=== PATIENT | female | born 1970 | race Hispanic/Latino ===

== ENCOUNTER 2017-06-14 16:40 | Observation (INO) | payer BC, MEDICAID ==
[2017-06-14] MEDS ORDERED: Sodium Chloride 0.9% 1,000 ML IV STA (17:13)
[2017-06-14 17:16] LABS: HEMATOCRIT 28.8 % (36.0-48.0); MEAN CELL VOLUME 63.7 fl (80.0-105.0); MEAN CORPUSCULAR HEMOGLOBIN 18.4 pg (25.0-35.0); MEAN CORPUSCULAR HGB CONC 28.8 g/dl (31.0-37.0); PLATELET COUNT 255 10^3/uL (120.0-450.0); RED CELL DISTRIBUTION WIDTH 18.7 % (11.5-14.5); WHITE BLOOD COUNT 8.3 10^3/ul (4.5-11.0)
[2017-06-14 17:26] LABS: ALB/GLOB RATIO 1.4 (1.1-1.8); ALKALINE PHOSPHATASE 75 U/L (38-126); ALT/SGPT 23 U/L (7-56); AST/SGOT 26 U/L (14-36); BILIRUBIN,TOTAL 0.2 mg/dL (0.2-1.3); BLOOD UREA NITROGEN 13 mg/dL (7-21); CALCIUM 8.7 mg/dL (8.4-10.5); CARBON DIOXIDE 24 mmol/L (21-33); CHLORIDE 109 mmol/L (98-107); GFR AFRICAN-AMERICAN > 60; GLUCOSE,RANDOM 91 mg/dL (70-110); LIPASE 78 U/L (23-300); MAGNESIUM 1.9 mg/dL (1.7-2.2); POTASSIUM 3.8 mmol/L (3.6-5.0); SODIUM 140 mmol/L (132-148); TOTAL PROTEIN 6.7 g/dL (5.8-8.3)
[2017-06-14 17:53] LABS: URINE BILIRUBIN NEGATIVE (NEGATIVE); URINE BLOOD NEGATIVE (NEGATIVE); URINE GLUCOSE (UA) NEGATIVE (NEGATIVE); URINE KETONE NEGATIVE (NEGATIVE); URINE LEUKOCYTE ESTERASE TRACE Leu/uL (NEGATIVE); URINE PROTEIN NEGATIVE mg/dL (<30 mg/dL); URINE UROBILINOGEN 0.2 E.U./dL (<1 E.U./dL)
[2017-06-14 17:54] LABS: URINE APPEARANCE SL CLOUDY (CLEAR); URINE COLOR YELLOW (YELLOW)
[2017-06-14 17:58] LABS: URINE RBC 0 - 2 /hpf (0-2)
--- NOTE | 2017-06-14 18:58 | ED PDOC ---
Arrival/HPI - General Chief Complaint: Abdominal Pain Time Seen by Provider: 06/14/17 16:52 Historian: Patient - History of Present Illness Narrative History of Present Illness (Text): 06/14/17 18:50 A 46 year old female whose past medical history includes gastric bypass and has had one of her ovaries removed (she thinks it is the left), presents to the emergency department with a complaint of left lower quadrant abdominal pain radiating to the left flank and hip and down the left upper portion of her leg. The patient states that the pain is episodic, but very intense with associated nausea and vomiting. She also has been having fatigue for several weeks. The patient denies fevers, chills, headache, dizziness, chest pain, shortness of breath, dyspnea on exertion, cough, diarrhea, back pain, neck pain, urinary/ bowel changes, or any other complaint. Time/Duration: Other (Today) Symptom Onset: Sudden Symptom Course: Unchanged Activities at Onset: Rest, Light Context: Home Past Medical History - Provider Review Nursing Documentation Reviewed: Yes - Infectious Disease Hx of Infectious Diseases: None - Tetanus Immunization Tetanus Immunization: Unknown - Past Medical History Past Medical History: Non-Contributing - Psychiatric Hx Depression: No Hx Emotional Abuse: No Hx Physical Abuse: No Hx Substance Use: No - Surgical History Hx Gastric Bypass Surgery: Yes (zuly n y) Hx Tubal Ligation: Yes - Anesthesia Hx Anesthesia: Yes Hx Anesthesia Reactions: No Hx Malignant Hyperthermia: No - Suicidal Assessment Feels Threatened In Home Enviroment: No Family/Social History - Physician Review Nursing Documentation Reviewed: Yes Family/Social History: No Known Family HX Smoking Status: Current Some Days Smoker Hx Alcohol Use: Yes Frequency of alcohol use: Socially Hx Substance Use: No Hx Substance Use Treatment: No Allergies/Home Meds Allergies/Adverse Reactions: Allergies codeine Adverse Reaction (Verified 06/14/17 16:42) ANAPHYLAXIS Home Medications: Home Meds Medication Instructions Recorded Confirmed No Known Home Med 06/14/17 06/14/17 Review of Systems - Physician Review All systems were reviewed & negative as marked: Yes - Review of Systems Constitutional: Fatigue. absent: Fevers, Night Sweats ENT: absent: Sore Throat Respiratory: absent: SOB, Cough Cardiovascular: absent: Chest Pain, [place] Gastrointestinal: Abdominal Pain (LLQ pain), Nausea, Vomiting. absent: Stool Changes, Diarrhea Genitourinary Female: absent: Urine Output Changes Musculoskeletal: absent: Back Pain, Neck Pain Neurological: absent: Headache, Dizziness Physical Exam Vital Signs Reviewed: Yes Vital Signs Temp Pulse Resp BP Pulse Ox 06/14/17 20:32 60 12 118/65 100 06/14/17 19:50 62 16 140/89 100 06/14/17 18:22 59 L 16 134/70 100 06/14/17 17:45 56 L 12 130/68 100 06/14/17 16:45 98.2 F 71 19 127/77 100 Temperature: Afebrile Blood Pressure: Normal Pulse: Regular Respiratory Rate: Normal Appearance: Positive for: Non-Toxic, Uncomfortable (due to pain) Pain Distress: Moderate Mental Status: Positive for: Alert and Oriented X 3 - Systems Exam Head: Present: Atraumatic, Normocephalic Pupils: Present: PERRL Conjunctiva: Present: Normal Mouth: Present: Moist Mucous Membranes Pharnyx: Present: Normal. No: ERYTHEMA, EXUDATE Neck: Present: Normal Range of Motion Respiratory/Chest: Present: Clear to Auscultation, Good Air Exchange. No: Respiratory Distress, Accessory Muscle Use Cardiovascular: Present: Regular Rate and Rhythm, Normal S1, S2. No: Murmurs Abdomen: Present: Tenderness (LLQ tender to palpation) Back: Present: CVA Tenderness Upper Extremity: Present: Normal Inspection. No: Cyanosis, Edema Lower Extremity: Present: Normal Inspection. No: Edema Neurological: Present: GCS=15, CN II-XII Intact, Speech Normal Skin: Present: Warm, Dry, Normal Color. No: Rashes Psychiatric: Present: Alert, Oriented x 3, Normal Insight, Normal Concentration Medical Decision Making ED Course and Treatment: 06/14/17 19:00 Impression: A 46 year old female presents with LLQ abdominal pain radiating to the left flank area, hip, and down the left upper portion of her leg. Differential: L renal colic vs. colitis vs muscular pain vs. intussusception Plan: -- Abdomen/Pelvis CT -- Urinalysis -- Labs -- Urine Culture -- Pepcid, Zofran, Toradol, and IV Fluids -- Reassess and disposition Prior Visits: Notes and results from previous visits were reviewed. Patient was last seen in the emergency department on 11/15/14. The patient presented to the emergency department with a complaint of RLQ. The patient was discharged home on Ultram. Progress Notes: CT Abdomen and Pelvis Without Intravenous Contrast IMPRESSION: - Possible mild mesenteric adenitis. - Otherwise, no evidence of significant acute process. - Tiny, nonobstructing left renal stone. No evidence of obstructive nephrourolithiasis. - Findings which can be seen with anemia. Recommend clinical correlation. - See above for remaining findings. Dictated and Authenticated by: Lindsey Browne MD 06/14/2017 8:35 PM Eastern Time ([place] & [place]) 06/14/17 21:26 Patient with noted history with labs showing significant anemia; patient uncomfortable appearing, not relieved with toradol, requiring iv narcotics for pain control - CT results are nondiagnostic though septal cardiac changes seen in anemia are noted - will need further observation for GI and surgery eval ( given gastric bypass history). Case discussed with hospitalist, Dr. Mayte Corado. - Lab Interpretations Lab Results: 06/14/17 17:00 06/14/17 17:00 Lab Results 06/14/17 17:25: Urine Color Yellow, Urine Appearance Sl cloudy, Urine pH 6.0, Ur Specific [place] >= 1.030, Urine Protein Negative, Urine Glucose (UA) Negative, Urine Ketones Negative, Urine Blood Negative, Urine Nitrate Negative, Urine Bilirubin Negative, Urine Urobilinogen 0.2, Ur Leukocyte Esterase Trace H , Urine RBC 0 - 2, Urine WBC 1 - 3, Ur Epithelial Cells 10 - 12 06/14/17 17:00: Sodium 140, Potassium 3.8, Chloride 109 H, Carbon Dioxide 24, Anion Gap 11, BUN 13, Creatinine 0.7, Est GFR ( Amer) > 60, Est GFR (Non- Af Amer) > 60, Random Glucose 91, Calcium 8.7, Magnesium 1.9, Total Bilirubin 0.2, AST 26, ALT 23, Alkaline Phosphatase 75, Total Protein 6.7, Albumin 3.8, Globulin 2.8, Albumin/Globulin Ratio 1.4, Lipase 78 06/14/17 17:00: WBC 8.3 D, RBC 4.52, Hgb 8.3 L, Hct 28.8 L, MCV 63.7 L, MCH 18.4 L, MCHC 28.8 L, RDW 18.7 H, Plt Count 255 I have reviewed the lab results: Yes - RAD Interpretation Radiology Orders: 06/14/17 17:12 ABD & PELVIS W/O PO OR IV CONT [CT] Stat - Medication Orders Current Medication Orders: Discontinued Medications Famotidine (Pepcid) 20 mg IVP STAT STA Stop: 06/14/17 17:14 Last Admin: 06/14/17 17:31 Dose: 20 mg IVP Administration Document 06/14/17 17:31 CNR (Rec: 06/14/17 17:31 CNR [place] [id number]) Charges for Administration # of IVP Administrations 1 Sodium Chloride (Sodium Chloride 0.9%) 1,000 mls @ 999 mls/hr IV .Q1H1M STA Stop: 06/14/17 18:13 Last Admin: 06/14/17 17:28 Dose: 999 mls/hr eMAR Start Stop Document 06/14/17 17:28 GMI (Rec: 06/14/17 17:29 GMI [id number]) Intravenous Solution Start Date 06/14/17 Start Time 17:29 Ketorolac Tromethamine (Toradol) 30 mg IVP STAT STA Stop: 06/14/17 17:14 Last Admin: 06/14/17 17:31 Dose: 30 mg MAR Pain Assessment Document 06/14/17 17:31 CNR (Rec: 06/14/17 17:31 CNR [place] [id number]) Pain Reassessment Is this a pain reassessment? Yes Sleep Is patient sleeping during reassessment? No Presence of Pain Presence of Pain Yes Pain Scale Used Pain Scale Used Numeric Location Pain Location Body Site Abdomen Description Description Constant Intensity of Pain at present 7 IVP Administration Document 06/14/17 17:31 CNR (Rec: 06/14/17 17:31 CNR [place] [id number]) Charges for Administration # of IVP Administrations 1 Morphine Sulfate (Morphine) 2 mg IVP STAT STA Stop: 06/14/17 19:32 Last Admin: 06/14/17 19:56 Dose: 2 mg MAR Pain Assessment Document 06/14/17 19:56 CNR (Rec: 06/14/17 19:56 CNR [place] [id number]) Pain Reassessment Is this a pain reassessment? Yes Sleep Is patient sleeping during reassessment? No Presence of Pain Presence of Pain Yes Pain Scale Used Pain Scale Used Numeric Location Pain Location Body Site Abdomen Description Description Constant Intensity of Pain at present 4 IVP Administration Document 06/14/17 19:56 CNR (Rec: 06/14/17 19:56 CNR [place] [id number]) Charges for Administration # of IVP Administrations 1 Ondansetron HCl (Zofran Inj) 4 mg IVP STAT STA Stop: 06/14/17 17:14 Last Admin: 06/14/17 17:31 Dose: 4 mg IVP Administration Document 06/14/17 17:31 CNR (Rec: 06/14/17 17:31 CNR [place] [id number]) Charges for Administration # of IVP Administrations 1 - Scribe Statement The provider has reviewed the documentation as recorded by the Niribsameer Cardoza Provider Scribe Attestation: All medical record entries made by the Scribe were at my direction and personally dictated by me. I have reviewed the chart and agree that the record accurately reflects my personal performance of the history, physical exam, medical decision making, and the department course for this patient. I have also personally directed, reviewed, and agree with the discharge instructions and disposition. Disposition/Present on Arrival - Present on Arrival Any Indicators Present on Arrival: No History of DVT/PE: No History of Uncontrolled Diabetes: No Urinary Catheter: No History of Decub. Ulcer: No History Surgical Site Infection Following: None - Disposition Have Diagnosis and Disposition been Completed?: Yes Diagnosis: Intractable abdominal pain, Anemia Disposition: HOSPITALIZED Disposition Time: 20:50 Patient Plan: Observation Condition: FAIR
[2017-06-14] MEDS ORDERED: Morphine 2 mg/ml ISec IVP STA (19:31)
--- NOTE | 2017-06-14 20:35 | CT ---
EXAM: CT Abdomen and Pelvis Without Intravenous Contrast EXAM DATE/TIME: 06/14/2017 5:12 PM CLINICAL HISTORY: 46 years old, female; Pain; Abdominal pain; Additional info: L side abd pain with l flank pain TECHNIQUE: Axial computed tomography images of the abdomen and pelvis without intravenous contrast. All CT scans at this facility use one or more dose reduction techniques, viz.: automated exposure control; ma/kV adjustment per patient size (including targeted exams where dose is matched to indication; i.e. head); or iterative reconstruction technique. Coronal and sagittal reformatted images were created and reviewed. COMPARISON: No relevant prior studies available. FINDINGS: LOWER THORAX: Dense septum sign noted in the heart, a finding which can be seen with anemia. Heart appears mildly enlarged for age. Recommend clinical correlation. ABDOMEN: LIVER: No acute abnormality of the liver identified. GALLBLADDER AND BILE DUCTS: No CT evidence of acute cholecystitis. No evidence of significant biliary ductal dilatation. PANCREAS: No CT evidence of acute pancreatitis. SPLEEN: No acute abnormality of the spleen identified. ADRENALS: No acute abnormality of the adrenal glands identified. KIDNEYS AND URETERS: Tiny, nonobstructing left renal stone. No evidence of hydroureteronephrosis. STOMACH AND BOWEL: Postsurgical changes involving the stomach and left abdomen, with an appearance most compatible with previous gastric bypass surgery. Otherwise, no significant abnormality of the bowel is identified. No acute abnormality of the gastric pouch or excluded portion of the stomach identified. No evidence of bowel obstruction. APPENDIX: Appendix is seen, and is within normal limits in appearance. PELVIS: BLADDER: No acute abnormality of the bladder identified. REPRODUCTIVE:No acute abnormality of the reproductive organs is seen. No acute abnormality of the uterus identified. No evidence of large adnexal masses. ABDOMEN and PELVIS: INTRAPERITONEAL SPACE: Tiny amount of free fluid in the pelvis. This is most likely physiologic in nature. No evidence of free intraperitoneal air. BONES/JOINTS: No acute fractures or other acute bony abnormality noted. SOFT TISSUES: No acute abnormality of the visualized soft tissues is seen. VASCULATURE: No evidence of abdominal aortic aneurysm. No evidence of periaortic hemorrhage. LYMPH NODES: Multiple small mesenteric lymph nodes are seen, none appearing pathologically enlarged. Findings are nonspecific, but could represent mild mesenteric adenitis. IMPRESSION: - Possible mild mesenteric adenitis. - Otherwise, no evidence of significant acute process. - Tiny, nonobstructing left renal stone. No evidence of obstructive nephrourolithiasis. - Findings which can be seen with anemia. Recommend clinical correlation. - See above for remaining findings.
[2017-06-14 22:54] VITALS: BMI 33.0
[2017-06-14] MEDS ORDERED: Pneumococcal 23-Valent Vaccine IM ONE (22:54)
[2017-06-14 23:43] LABS: IRON 18 ug/dL (45-180)
[2017-06-14 23:48] LABS: RETIC% 0.82 % (0.5-1.5)
[2017-06-15 00:22] LABS: INR 1.01 (0.93-1.08); PARTIAL THROMBOPLASTIN TIME 24.3 Seconds (23.7-30.8)
--- NOTE | 2017-06-15 03:58 | CP.PCM.HP ---
<JoseJamin - Last Filed: 06/15/17 05:10> History of Present Illness - History of Present Illness History of Present Illness: H/P For IM - TKS DO, PGY-1 CC: Abdominal pain HPI: 46 F s/p gastric bypass and oophorectomy presents with a week's duration of crampy, episodic LLQ abdominal pain of 8/10 radiating to her back in the lumbar region, which does not get better or worse with intervention, and is associated with n/v. Patient states that the pain became very intense yesterday, at which point it shot up to a 10/10, and that was the reason she came into the ER. She states that she used to have pain like this right after her gastric bypass when she would eat too much, but never this intense, and she says she now "know(s) how much to eat to prevent the pain." Of note, patient has also been feeling sob and fatigued for several months. Pt denies wheezing, cough, pleuritis, and production. Pt denies f/ch/cp/sob/d/dysuria/frequency/urgency/hematuria/hematochezia/ hematemesis/vaginal discharge PSHx: Gastric bypass, Oophorectomy PMHx: Obesity, Ovarian cysts All: Codeine SocHx: EtOH and Tobacco socially; denies illicits FamHx: Heavy periods Meds: Iron Present on Admission - Present on Admission Any Indicators Present on Admission: No Review of Systems - Hematologic/Lymphatic Additional comments: ROS: Constitutional: pt denies fever, chills, generalized weakness ENT: pt denies dysphagia, otalgia, hearing deficit, rhinorrhea Eyes: pt denies sudden loss of vision, diplopia, blurred vision MSK: pt denies muscle stiffness, joint pain, extremity cramping Cardio: pt denies sob, heart murmur, cp Pulm: pt denies cough, hemoptysis, wheeze GI: +see hpi : pt denies burning on urination, urinary frequency, hematuria, urinary urgency Neuro: pt denies paresis, paresthesia, dizziness, bland, numbness, tingling Derm: pt denies skin changes, lesions, nail changes Endo: pt denies intolerance to heat/cold, diaphoresis, night sweats, polydipsia Psych: pt denies anxiety, depression, mood changes Past Patient History - Infectious Disease Hx of Infectious Diseases: None - Tetanus Immunizations Tetanus Immunization: Unknown - Past Social History Smoking Status: Current Some Days Smoker - CARDIAC Hx Cardiac Disorders: No - PULMONARY Hx Respiratory Disorders: Yes (SMOKES 5 CIGARETTES A DAY) - NEUROLOGICAL Hx Neurological Disorder: No - HEENT Hx HEENT Problems: No - RENAL Hx Chronic Kidney Disease: No - ENDOCRINE/METABOLIC Hx Endocrine Disorders: No - HEMATOLOGICAL/ONCOLOGICAL Hx Blood Disorders: Yes Hx Anemia: Yes (8.3 HGB 06-14-17) - INTEGUMENTARY Hx Dermatological Problems: No - MUSCULOSKELETAL/RHEUMATOLOGICAL Hx Musculoskeletal Disorders: No Hx Falls: No - GASTROINTESTINAL Hx Gastrointestinal Disorders: Yes (GASTRIC BYPASS [place]) - GENITOURINARY/GYNECOLOGICAL Hx Genitourinary Disorders: Yes (FIBROIDS,L OVARY REMOVED,TUBAL LIGATION) - PSYCHIATRIC Hx Psychophysiologic Disorder: No Hx Depression: No Hx Emotional Abuse: No Hx Physical Abuse: No Hx Substance Use: No - SURGICAL HISTORY Hx Surgeries: Yes (L OVARY REMOVED,TUBAL LIGATION) Hx Gastric Bypass Surgery: Yes (zuly n y) - ANESTHESIA Hx Anesthesia: Yes Hx Anesthesia Reactions: No Hx Malignant Hyperthermia: No Meds Allergies/Adverse Reactions: Allergies Allergy/AdvReac Type Severity Reaction Status Date / Time codeine AdvReac ANAPHYLAXIS Verified 06/14/17 22:34 Physical Exam - Additional Findings Additional findings: Phys Exam: VS as below Constitutional: a&o x 4, nad Head and Neck: neck supple, no jvd, trachea midline, carotid midline, no cervical/head mass Eyes: zaheer, nonicteric sclera, eom intact ENT: auditory acuity grossly intact, throat not congested, no nasal deformity Cardio: rrr, no m/r/g, no carotid bruit, nml s1, s2 Pulm: no accessory muscle use, equal nml breath sounds bilaterally, ctab Abd: +exquisitely tender in LLQ; Negative Frankie's sign; s/nd, nbs x 4 q, no palpable masses Derm: no rashes, no ulcers, no lesions Extr: no edema, no cyanosis, no calf tenderness, no lesions, no varicosities Neuro: cn II-XII grossly intact, ue and le 5/5 muscle strength bilaterally, no los ue, le bilaterally and core Results - Vital Signs Recent Vital Signs: Last Vital Signs Temp 97.8 F 06/14/17 22:34 Pulse 63 06/14/17 22:34 Resp 18 06/14/17 22:34 BP 130/47 L 06/14/17 22:34 Pulse Ox 99 06/14/17 22:30 - Labs Result Diagrams: 06/14/17 17:00 06/14/17 17:00 Labs: Laboratory Results - last 24 hr 06/14/17 06/14/17 06/14/17 17:00 17:00 17:00 WBC 8.3 D RBC 4.52 Hgb 8.3 L Hct 28.8 L MCV 63.7 L MCH 18.4 L MCHC 28.8 L RDW 18.7 H Plt Count 255 Retic Count PT INR APTT Sodium 140 Potassium 3.8 Chloride 109 H Carbon Dioxide 24 Anion Gap 11 BUN 13 Creatinine 0.7 Est GFR ( Amer) > 60 Est GFR (Non-Af Amer) > 60 Random Glucose 91 Calcium 8.7 Magnesium 1.9 Iron 18 L TIBC 551 H % Saturation 3 L Total Bilirubin 0.2 AST 26 ALT 23 Alkaline Phosphatase 75 Total Protein 6.7 Albumin 3.8 Globulin 2.8 Albumin/Globulin Ratio 1.4 Lipase 78 Urine Color Urine Appearance Urine pH Ur Specific Sod Urine Protein Urine Glucose (UA) Urine Ketones Urine Blood Urine Nitrate Urine Bilirubin Urine Urobilinogen Ur Leukocyte Esterase Urine RBC Urine WBC Ur Epithelial Cells 06/14/17 06/14/17 06/14/17 17:00 17:25 23:55 WBC RBC Hgb Hct MCV MCH MCHC RDW Plt Count Retic Count 0.82 PT 10.9 INR 1.01 APTT 24.3 Sodium Potassium Chloride Carbon Dioxide Anion Gap BUN Creatinine Est GFR ( Amer) Est GFR (Non-Af Amer) Random Glucose Calcium Magnesium Iron TIBC % Saturation Total Bilirubin AST ALT Alkaline Phosphatase Total Protein Albumin Globulin Albumin/Globulin Ratio Lipase Urine Color Yellow Urine Appearance Sl cloudy Urine pH 6.0 Ur Specific Sod >= 1.030 Urine Protein Negative Urine Glucose (UA) Negative Urine Ketones Negative Urine Blood Negative Urine Nitrate Negative Urine Bilirubin Negative Urine Urobilinogen 0.2 Ur Leukocyte Esterase Trace H Urine RBC 0 - 2 Urine WBC 1 - 3 Ur Epithelial Cells 10 - 12 Assessment & Plan - Assessment and Plan (Free Text) Assessment: A/P 46 F s/p oophorectomy and gastric bypass with 1 week of severe abdominal pain radiating to her back with associated N/V. Patient also has symptomatic anemia Intractible Abdominal Pain, likely 2/2 eating adjustment VS renal stone VS mesenteric adenitis - CT Abdomen shows mesenteric adenitis as well as a small renal stone - pain could be due to a combination of these - Patient states that in the past, she had trouble with overeating after her gastric bypass - perhaps with her new weight, she is having difficulty adjusting to the proper food quantity - NPO, Protonix - GI C/s: Dr. Mills Symptomatic Anemia - Iron studies, Retic count - Consider transfusion < 7.5 - Consider Heme c/s, but more of an outpatient workup - IV Iron PPHXS - SCD's/Protonix, as above TKS DO PGY-1. D/w Dr. Mayte Corado <Gerber Corado - Last Filed: 06/15/17 06:28> Results - Vital Signs Recent Vital Signs: Last Vital Signs Temp 97.8 F 06/14/17 22:34 Pulse 63 06/14/17 22:34 Resp 18 06/14/17 22:34 BP 130/47 L 06/14/17 22:34 Pulse Ox 99 06/14/17 22:30 - Labs Result Diagrams: 06/14/17 17:00 06/14/17 17:00 Labs: Laboratory Results - last 24 hr 06/14/17 23:55 PT 10.9 INR 1.01 APTT 24.3 Addendum Addendum: 06/15/17 06:23 46 hrs old female with hx of gastric bypass and heavy regular cycle menstration came to the er for c/o abdominal pain x few days left side of abdomen associated with nausea and vomiting no diarrhea or constipation. no fever chills , and weakness.found to have mesenteric adenitis on ct of abdomen and fe deficiency anemia.
--- NOTE | 2017-06-15 05:28 | CP.PCM.CON ---
History of Present Illness - History of Present Illness History of Present Illness: SURGERY CONSULT NOTE FOR DR. RICHARDSON 46F presents to [facility] with left sided abdominal pain. Patient states pain started on Friday, she describes it as achy and states it does not radiate. Patient states pain is associated with vomiting, especially after eating food. Vomitus is non-bloody, non bilious. She denies fevers, chills, and change in bowel movements. Her diet has been advanced since she has been here and she states she is able to tolerate the full liquid diet she is currently on. Patient states she has never had this type of pain before. Had a gastric bypass in april 2013 and has been following up with the surgeon. She lost 140lb since the operation. PMH: denies PSH: Gastric bypass, left oophorectomy (or cyst removal, patient unsure), with b /l tubal ligation Social: admits to tobacco and alcohol abuse Allergies: Codeine (angioedema) Past Patient History - Infectious Disease Hx of Infectious Diseases: None - Tetanus Immunizations Tetanus Immunization: Unknown - Past Social History Smoking Status: Current Some Days Smoker - CARDIAC Hx Cardiac Disorders: No - PULMONARY Hx Respiratory Disorders: Yes (SMOKES 5 CIGARETTES A DAY) - NEUROLOGICAL Hx Neurological Disorder: No - HEENT Hx HEENT Problems: No - RENAL Hx Chronic Kidney Disease: No - ENDOCRINE/METABOLIC Hx Endocrine Disorders: No - HEMATOLOGICAL/ONCOLOGICAL Hx Blood Disorders: Yes Hx Anemia: Yes (8.3 HGB 06-14-17) - INTEGUMENTARY Hx Dermatological Problems: No - MUSCULOSKELETAL/RHEUMATOLOGICAL Hx Musculoskeletal Disorders: No Hx Falls: No - GASTROINTESTINAL Hx Gastrointestinal Disorders: Yes (GASTRIC BYPASS [place]) - GENITOURINARY/GYNECOLOGICAL Hx Genitourinary Disorders: Yes (FIBROIDS,L OVARY REMOVED,TUBAL LIGATION) - PSYCHIATRIC Hx Psychophysiologic Disorder: No Hx Depression: No Hx Emotional Abuse: No Hx Physical Abuse: No Hx Substance Use: No - SURGICAL HISTORY Hx Surgeries: Yes (L OVARY REMOVED,TUBAL LIGATION) Hx Gastric Bypass Surgery: Yes (zuly n y) - ANESTHESIA Hx Anesthesia: Yes Hx Anesthesia Reactions: No Hx Malignant Hyperthermia: No Meds Allergies/Adverse Reactions: Allergies Allergy/AdvReac Type Severity Reaction Status Date / Time codeine AdvReac ANAPHYLAXIS Verified 06/14/17 22:34 - Medications Medications: Current Medications Iron Sucrose 100 mg/ Sodium (Chloride) 105 mls @ 210 mls/hr IVPB ONCE ONE Stop: 06/15/17 05:38 Pantoprazole Sodium (Protonix Inj) 40 mg IVP 0600 EMMY Physical Exam - Constitutional Appears: Non-toxic, No Acute Distress - Head Exam Head Exam: ATRAUMATIC - ENT Exam ENT Exam: Mucous Membranes Moist - Respiratory Exam Respiratory Exam: Clear to Auscultation Bilateral, NORMAL BREATHING PATTERN - Cardiovascular Exam Cardiovascular Exam: REGULAR RHYTHM, +S1, +S2 - GI/Abdominal Exam GI & Abdominal Exam: Soft, Tenderness (mostly LUQ). absent: Distended, Firm, Guarding, Rebound, Rigid - Extremities Exam Extremities exam: Negative for: pedal edema, tenderness - Back Exam Additional comments: negative bhavin's test - Neurological Exam Neurological exam: Alert, Oriented x3 - Psychiatric Exam Psychiatric exam: Normal Affect, Normal Mood - Skin Skin Exam: Dry, Intact, Normal Color, Warm Results - Vital Signs Recent Vital Signs: Last Vital Signs Temp 97.8 F 06/14/17 22:34 Pulse 63 06/14/17 22:34 Resp 18 06/14/17 22:34 BP 130/47 L 06/14/17 22:34 Pulse Ox 99 06/14/17 22:30 - Labs Result Diagrams: 06/14/17 17:00 06/14/17 17:00 Labs: Laboratory Results - last 24 hr 06/14/17 23:55 PT 10.9 INR 1.01 APTT 24.3 Assessment & Plan - Assessment and Plan (Free Text) Assessment: 46F with abdominal pain resolving CT: mesenteric adenitis, non-obstructing kidney stone Plan: - Advance diet as tolerated - Pain control - serial abdominal exams - Monitor CBC/ kidney function -DVT/GI ppx Further recs discuss with Dr. Amauri Dobbs, PGY2
[2017-06-15] MEDS ORDERED: Pantoprazole 40mg/100ml IVPB 40 MG/100 ML BAG IVPB SCH (06:00)
[2017-06-15 07:33] LABS: ALB/GLOB RATIO 1.3 (1.1-1.8); ALKALINE PHOSPHATASE 57 U/L (38-126); ALT/SGPT 26 U/L (7-56); AST/SGOT 21 U/L (14-36); BILIRUBIN,TOTAL 0.3 mg/dL (0.2-1.3); BLOOD UREA NITROGEN 14 mg/dL (7-21); CALCIUM 8.5 mg/dL (8.4-10.5); CARBON DIOXIDE 23 mmol/L (21-33); CHLORIDE 110 mmol/L (98-107); GFR AFRICAN-AMERICAN > 60; GLUCOSE,RANDOM 95 mg/dL (70-110); MAGNESIUM 1.9 mg/dL (1.7-2.2); PHOSPHOROUS 3.8 mg/dL (2.5-4.5); POTASSIUM 3.8 mmol/L (3.6-5.0); SODIUM 140 mmol/L (132-148); TOTAL PROTEIN 5.9 g/dL (5.8-8.3)
[2017-06-15 08:05] LABS: RETIC% 0.55 % (0.5-1.5)
[2017-06-15 08:16] LABS: BASO # 0.05 K/mm3 (0.0-2.0); BASO % 0.8 % (0.0-3.0); EOS # 0.3 (0.0-0.7); EOS % 4.8 % (1.5-5.0); GRAN % 59.5 % (50.0-68.0); HEMATOCRIT 25.5 % (36.0-48.0); LYMPH # 1.6 (1.2-3.4); LYMPH % 25.7 % (22.0-35.0); MEAN CELL VOLUME 63.9 fl (80.0-105.0); MEAN CORPUSCULAR HEMOGLOBIN 18.5 pg (25.0-35.0); MONO # 0.6 (0.1-0.6); MONO % 9.2 % (1.0-6.0); PLATELET COUNT 204 10^3/uL (120.0-450.0); RED CELL DISTRIBUTION WIDTH 18.7 % (11.5-14.5); WHITE BLOOD COUNT 6.2 10^3/ul (4.5-11.0)
[2017-06-15] MEDS ORDERED: Oxycodone/Acetaminophen 5/325 mg Tab PO PRN ×2 (10:18→10:29)
--- NOTE | 2017-06-15 13:52 | CP.PCM.CON ---
<Sam Kimble - Last Filed: 06/15/17 13:42> History of Present Illness - History of Present Illness History of Present Illness: PGY4 Initial GI Consult Ama Mcpherson is a 46 F s/p gastric bypass and oophorectomy presents with abdominal pain. She states that her pain is intermittent and located in the LLQ. She graded the pain 10/10 and states that it radiated to her back. She denies any alleviating or aggravating factors. Patient states that her pain peaked yesterday. She states that she used to have pain like this right after her gastric bypass when she would eat too much, but never this intense. Pt states that she has that she has daily BM and they were regular. She denies any nausea, vomiting or diarrhea. She denies any BRBPR, melena, coffee-ground emesis , or hematemesis. She states that she has not follow-up with her PCP in 1 year. Since admission, she has tolerated her diet and wants to advance it. Her pain is almost resolved. PSHx: Gastric bypass, Oophorectomy PMHx: Obesity, Ovarian cysts All: Codeine SocHx: EtOH and Tobacco socially; denies illicits FamHx: Heavy periods Endoscopy Hx: none ROS: 12-point ROS conducted, neg other than above Past Patient History - Infectious Disease Hx of Infectious Diseases: None - Tetanus Immunizations Tetanus Immunization: Unknown - Past Social History Smoking Status: Current Some Days Smoker - CARDIAC Hx Cardiac Disorders: No - PULMONARY Hx Respiratory Disorders: Yes (SMOKES 5 CIGARETTES A DAY) - NEUROLOGICAL Hx Neurological Disorder: No - HEENT Hx HEENT Problems: No - RENAL Hx Chronic Kidney Disease: No - ENDOCRINE/METABOLIC Hx Endocrine Disorders: No - HEMATOLOGICAL/ONCOLOGICAL Hx Blood Disorders: Yes Hx Anemia: Yes (8.3 HGB 9-30-17) - INTEGUMENTARY Hx Dermatological Problems: No - MUSCULOSKELETAL/RHEUMATOLOGICAL Hx Musculoskeletal Disorders: No Hx Falls: No - GASTROINTESTINAL Hx Gastrointestinal Disorders: Yes (GASTRIC BYPASS [place]) - GENITOURINARY/GYNECOLOGICAL Hx Genitourinary Disorders: Yes (FIBROIDS,L OVARY REMOVED,TUBAL LIGATION) - PSYCHIATRIC Hx Psychophysiologic Disorder: No Hx Depression: No Hx Emotional Abuse: No Hx Physical Abuse: No Hx Substance Use: No - SURGICAL HISTORY Hx Surgeries: Yes (L OVARY REMOVED,TUBAL LIGATION) Hx Gastric Bypass Surgery: Yes (zuly n y) - ANESTHESIA Hx Anesthesia: Yes Hx Anesthesia Reactions: No Hx Malignant Hyperthermia: No Meds Allergies/Adverse Reactions: Allergies Allergy/AdvReac Type Severity Reaction Status Date / Time codeine AdvReac ANAPHYLAXIS Verified 06/14/17 22:34 - Medications Medications: Current Medications Ketorolac Tromethamine (Toradol) 30 mg IVP Q4 PRN PRN Reason: Pain, severe (8-10) Oxycodone/Acetaminophen (Percocet 5/325 Mg Tab) 2 tab PO Q4H PRN PRN Reason: Pain, moderate (4-7) Stop: 06/18/17 10:30 Pantoprazole Sodium (Protonix Inj) 40 mg IVP 0600 [facility] Last Admin: 06/15/17 05:22 Dose: 40 mg Physical Exam - Constitutional Appears: Well, No Acute Distress - Head Exam Head Exam: ATRAUMATIC, NORMOCEPHALIC - Eye Exam Eye Exam: Normal appearance - ENT Exam ENT Exam: Mucous Membranes Moist - Neck Exam Neck exam: Positive for: Normal Inspection - Respiratory Exam Respiratory Exam: Clear to Auscultation Bilateral, NORMAL BREATHING PATTERN. absent: Rales, Rhonchi, Wheezes, Respiratory Distress - Cardiovascular Exam Cardiovascular Exam: REGULAR RHYTHM, +S1, +S2 - GI/Abdominal Exam GI & Abdominal Exam: Normal Bowel Sounds, Soft. absent: Guarding, Hernia, Organomegaly, Rigid - Extremities Exam Extremities exam: Negative for: joint swelling, pedal edema - Neurological Exam Neurological exam: Alert, Oriented x3 - Psychiatric Exam Psychiatric exam: Normal Affect, Normal Mood - Skin Skin Exam: Dry, Intact, Normal Color, Warm Results - Vital Signs Recent Vital Signs: Last Vital Signs Temp 98.3 F 06/15/17 13:20 Pulse 62 06/15/17 13:20 Resp 18 06/15/17 13:20 BP 127/83 06/15/17 13:20 Pulse Ox 99 06/15/17 07:30 - Labs Result Diagrams: 06/15/17 06:00 06/15/17 06:00 Labs: Laboratory Results - last 24 hr 06/14/17 06/15/17 06/15/17 23:55 06:00 06:00 WBC 6.2 D RBC 3.99 Hgb 7.4 L Hct 25.5 L MCV 63.9 L MCH 18.5 L MCHC 29.0 L RDW 18.7 H Plt Count 204 Gran % 59.5 Lymph % (Auto) 25.7 [place] % (Auto) 9.2 H Eos % (Auto) 4.8 Baso % (Auto) 0.8 Gran # 3.70 Lymph # 1.6 [place] # 0.6 Eos # 0.3 Baso # 0.05 Retic Count PT 10.9 INR 1.01 APTT 24.3 Sodium 140 Potassium 3.8 Chloride 110 H Carbon Dioxide 23 Anion Gap 11 BUN 14 Creatinine 0.7 Est GFR ( Amer) > 60 Est GFR (Non-Af Amer) > 60 Random Glucose 95 Calcium 8.5 Phosphorus 3.8 Magnesium 1.9 Total Bilirubin 0.3 AST 21 ALT 26 Alkaline Phosphatase 57 Total Protein 5.9 Albumin 3.3 Globulin 2.6 Albumin/Globulin Ratio 1.3 Blood Type Blood Type Confirm Antibody Screen Crossmatch BBK History Checked 06/15/17 06/15/17 06/15/17 06:30 09:55 10:50 WBC RBC Hgb Hct MCV MCH MCHC RDW Plt Count Gran % Lymph % (Auto) [place] % (Auto) Eos % (Auto) Baso % (Auto) Gran # Lymph # [place] # Eos # Baso # Retic Count 0.55 PT INR APTT Sodium Potassium Chloride Carbon Dioxide Anion Gap BUN Creatinine Est GFR ( Amer) Est GFR (Non-Af Amer) Random Glucose Calcium Phosphorus Magnesium Total Bilirubin AST ALT Alkaline Phosphatase Total Protein Albumin Globulin Albumin/Globulin Ratio Blood Type O POSITIVE Blood Type Confirm O POSITIVE Antibody Screen Negative Crossmatch See Detail BBK History Checked No verified bt Assessment & Plan - Assessment and Plan (Free Text) Assessment: Ama Mcpherson is a 46F w/ hx of gastric bypass and anemia who presents to the ED with abd pain. Etiology of pain is acute on chronic likely 2/2 non-adherence to recommended bypass diet. Pt has a hx of anemia and heavy menses. 1. Abd pain, improved 2. Anemia, likley 2/2 heavy menes 3. 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 Temple <Cornelio Temple MD - Last Filed: 06/15/17 17:21> Meds - Medications Medications: Current Medications Ketorolac Tromethamine (Toradol) 30 mg IVP Q4 PRN PRN Reason: Pain, severe (8-10) Oxycodone/Acetaminophen (Percocet 5/325 Mg Tab) 2 tab PO Q4H PRN PRN Reason: Pain, moderate (4-7) Stop: 06/18/17 10:30 Pantoprazole Sodium (Protonix Inj) 40 mg IVP 0600 [facility] Last Admin: 06/15/17 05:22 Dose: 40 mg Results - Vital Signs Recent Vital Signs: Last Vital Signs Temp 98.9 F 06/15/17 16:50 Pulse 68 06/15/17 16:50 Resp 18 06/15/17 16:50 BP 153/85 H 06/15/17 16:50 Pulse Ox 99 06/15/17 16:00 - Labs Result Diagrams: 06/15/17 06:00 06/15/17 06:00 Labs: Laboratory Results - last 24 hr 06/14/17 06/15/17 06/15/17 23:55 06:00 06:00 WBC 6.2 D RBC 3.99 Hgb 7.4 L Hct 25.5 L MCV 63.9 L MCH 18.5 L MCHC 29.0 L RDW 18.7 H Plt Count 204 Gran % 59.5 Lymph % (Auto) 25.7 [place] % (Auto) 9.2 H Eos % (Auto) 4.8 Baso % (Auto) 0.8 Gran # 3.70 Lymph # 1.6 [place] # 0.6 Eos # 0.3 Baso # 0.05 Retic Count PT 10.9 INR 1.01 APTT 24.3 Sodium 140 Potassium 3.8 Chloride 110 H Carbon Dioxide 23 Anion Gap 11 BUN 14 Creatinine 0.7 Est GFR ( Amer) > 60 Est GFR (Non-Af Amer) > 60 Random Glucose 95 Calcium 8.5 Phosphorus 3.8 Magnesium 1.9 Ferritin Total Bilirubin 0.3 AST 21 ALT 26 Alkaline Phosphatase 57 Total Protein 5.9 Albumin 3.3 Globulin 2.6 Albumin/Globulin Ratio 1.3 Blood Type Blood Type Confirm Antibody Screen Crossmatch BBK History Checked 1006/15/17 06/15/17 06:30 06:30 09:55 WBC RBC Hgb Hct MCV MCH MCHC RDW Plt Count Gran % Lymph % (Auto) [place] % (Auto) Eos % (Auto) Baso % (Auto) Gran # Lymph # [place] # Eos # Baso # Retic Count 0.55 PT INR APTT Sodium Potassium Chloride Carbon Dioxide Anion Gap BUN Creatinine Est GFR ( Amer) Est GFR (Non-Af Amer) Random Glucose Calcium Phosphorus Magnesium Ferritin 4.0 Total Bilirubin AST ALT Alkaline Phosphatase Total Protein Albumin Globulin Albumin/Globulin Ratio Blood Type O POSITIVE Blood Type Confirm Antibody Screen Negative Crossmatch See Detail BBK History Checked No verified bt 06/15/17 10:50 WBC RBC Hgb Hct MCV MCH MCHC RDW Plt Count Gran % Lymph % (Auto) [place] % (Auto) Eos % (Auto) Baso % (Auto) Gran # Lymph # [place] # Eos # Baso # Retic Count PT INR APTT Sodium Potassium Chloride Carbon Dioxide Anion Gap BUN Creatinine Est GFR ( Amer) Est GFR (Non-Af Amer) Random Glucose Calcium Phosphorus Magnesium Ferritin Total Bilirubin AST ALT Alkaline Phosphatase Total Protein Albumin Globulin Albumin/Globulin Ratio Blood Type Blood Type Confirm O POSITIVE Antibody Screen Crossmatch BBK History Checked Attending/Attestation - Attestation I have personally seen and examined this patient.: Yes I have fully participated in the care of the patient.: Yes I have reviewed all pertinent clinical information: Yes Notes (Text): 06/15/17 17:18 Patient seen and examined at bedside with GI fellow. This is a 46 yr old F w/ hx of gastric bypass and chronic anemia who presents to the ED with LLQ non specific pain which had resolved. Denies change on bowel habits. Physical exam unremarkable. Ct scan reviewed- mild adenitis. No indication for antibiotics. Anemia likely due to chronic menorrhagia and malabsorption due to gastric bypass. Will benefit from outpatient EGD/ colonoscopy. Diet as tolerated. Can follow with me as outpatient
[2017-06-16 07:11] LABS: BASO # 0.02 K/mm3 (0.0-2.0); BASO % 0.3 % (0.0-3.0); EOS # 0.2 (0.0-0.7); EOS % 3.4 % (1.5-5.0); GRAN # 4.62 (1.4-6.5); GRAN % 67.3 % (50.0-68.0); HEMATOCRIT 30.9 % (36.0-48.0); LYMPH # 1.4 (1.2-3.4); MEAN CELL VOLUME 66.3 fl (80.0-105.0); MEAN CORPUSCULAR HEMOGLOBIN 19.7 pg (25.0-35.0); MEAN CORPUSCULAR HGB CONC 29.8 g/dl (31.0-37.0); MONO # 0.6 (0.1-0.6); PLATELET COUNT 207 10^3/uL (120.0-450.0); WHITE BLOOD COUNT 6.9 10^3/ul (4.5-11.0)
[2017-06-16 07:26] VITALS: BP 137/74; PULSE 63; RESP 20; TEMP 97.6; O2SAT 100
[2017-06-16 07:36] LABS: ALB/GLOB RATIO 1.3 (1.1-1.8); ALKALINE PHOSPHATASE 61 U/L (38-126); ALT/SGPT 19 U/L (7-56); AST/SGOT 20 U/L (14-36); BILIRUBIN,TOTAL 0.7 mg/dL (0.2-1.3); BLOOD UREA NITROGEN 10 mg/dL (7-21); CALCIUM 8.9 mg/dL (8.4-10.5); CARBON DIOXIDE 24 mmol/L (21-33); CHLORIDE 109 mmol/L (98-107); GFR AFRICAN-AMERICAN > 60; GLUCOSE,RANDOM 97 mg/dL (70-110); PHOSPHOROUS 3.2 mg/dL (2.5-4.5); SODIUM 140 mmol/L (132-148); TOTAL PROTEIN 6.5 g/dL (5.8-8.3)
--- NOTE | 2017-06-16 11:59 | CP.PCM.DIS ---
<Kierra Mao - Last Filed: 06/16/17 15:20> Provider - Provider Date of Admission: 06/14/17 20:53 Attending physician: Gretchen Carias MD Primary care physician: Juno Snyder MD Consults: GI: Windy Forrest: Amauri Time Spent in preparation of Discharge (in minutes): 31 Hospital Course - Lab Results Lab Results: Most Recent Lab Values WBC 6.9 10^3/ul (4.5-11.0) 06/16/17 07:01 RBC 4.66 10^6/uL (3.5-6.1) 06/16/17 07:01 Hgb 9.2 g/dL (12.0-16.0) L 06/16/17 07:01 Hct 30.9 % (36.0-48.0) L 06/16/17 07:01 MCV 66.3 fl (80.0-105.0) L 06/16/17 07:01 MCH 19.7 pg (25.0-35.0) L 06/16/17 07:01 MCHC 29.8 g/dl (31.0-37.0) L 06/16/17 07:01 RDW 20.0 % (11.5-14.5) H 06/16/17 07:01 Plt Count 207 10^3/uL (120.0-450.0) 06/16/17 07:01 Gran % 67.3 % (50.0-68.0) 06/16/17 07:01 Lymph % (Auto) 21.0 % (22.0-35.0) L 06/16/17 07:01 [place] % (Auto) 8.0 % (1.0-6.0) H 06/16/17 07:01 Eos % (Auto) 3.4 % (1.5-5.0) 06/16/17 07:01 Baso % (Auto) 0.3 % (0.0-3.0) 06/16/17 07:01 Gran # 4.62 (1.4-6.5) 06/16/17 07:01 Lymph # 1.4 (1.2-3.4) 06/16/17 07:01 [place] # 0.6 (0.1-0.6) 06/16/17 07:01 Eos # 0.2 (0.0-0.7) 06/16/17 07:01 Baso # 0.02 K/mm3 (0.0-2.0) 06/16/17 07:01 Retic Count 0.55 % (0.5-1.5) 06/15/17 06:30 PT 10.9 Seconds (9.9-11.8) 06/14/17 23:55 INR 1.01 (0.93-1.08) 06/14/17 23:55 APTT 24.3 Seconds (23.7-30.8) 06/14/17 23:55 Sodium 140 mmol/L (132-148) 06/16/17 07:01 Potassium 4.0 mmol/L (3.6-5.0) 06/16/17 07:01 Chloride 109 mmol/L (98-107) H 06/16/17 07:01 Carbon Dioxide 24 mmol/L (21-33) 06/16/17 07:01 Anion Gap 11 (10-20) 06/16/17 07:01 BUN 10 mg/dL (7-21) 06/16/17 07:01 Creatinine 0.7 mg/dL (0.5-1.4) 06/16/17 07:01 Est GFR ( Amer) > 60 06/16/17 07:01 Est GFR (Non-Af Amer) > 60 06/16/17 07:01 Random Glucose 97 mg/dL (70-110) 06/16/17 07:01 Calcium 8.9 mg/dL (8.4-10.5) 06/16/17 07:01 Phosphorus 3.2 mg/dL (2.5-4.5) 06/16/17 07:01 Magnesium 2.0 mg/dL (1.7-2.2) 06/16/17 07:01 Iron 18 ug/dL (45-180) L 06/14/17 17:00 TIBC 551 ug/dL (265-497) H 06/14/17 17:00 % Saturation 3 % (20-55) L 06/14/17 17:00 Ferritin 4.0 ng/mL 06/15/17 06:30 Total Bilirubin 0.7 mg/dL (0.2-1.3) 06/16/17 07:01 AST 20 U/L (14-36) 06/16/17 07:01 ALT 19 U/L (7-56) 06/16/17 07:01 Alkaline Phosphatase 61 U/L (38-126) 06/16/17 07:01 Total Protein 6.5 g/dL (5.8-8.3) 06/16/17 07:01 Albumin 3.7 g/dL (3.0-4.8) 06/16/17 07:01 Globulin 2.8 gm/dL 06/16/17 07:01 Albumin/Globulin Ratio 1.3 (1.1-1.8) 06/16/17 07:01 Lipase 78 U/L (23-300) 06/14/17 17:00 Urine Color Yellow (YELLOW) 06/14/17 17:25 Urine Appearance Sl cloudy (CLEAR) 06/14/17 17:25 Urine pH 6.0 (4.7-8.0) 06/14/17 17:25 Ur Specific [place] >= 1.030 (1.005-1.035) 06/14/17 17:25 Urine Protein Negative mg/dL (<30 mg/dL) 06/14/17 17:25 Urine Glucose (UA) Negative mg/dL (NEGATIVE) 06/14/17 17:25 Urine Ketones Negative mg/dL (NEGATIVE) 06/14/17 17:25 Urine Blood Negative (NEGATIVE) 06/14/17 17:25 Urine Nitrate Negative (NEGATIVE) 06/14/17 17:25 Urine Bilirubin Negative (NEGATIVE) 06/14/17 17:25 Urine Urobilinogen 0.2 E.U./dL (<1 E.U./dL) 06/14/17 17:25 Ur Leukocyte Esterase Trace Lianne/uL (NEGATIVE) H 06/14/17 17:25 Urine RBC 0 - 2 /hpf (0-2) 06/14/17 17:25 Urine WBC 1 - 3 /hpf (0-6) 06/14/17 17:25 Ur Epithelial Cells 10 - 12 /hpf (0-5) 06/14/17 17:25 Blood Type O POSITIVE 06/15/17 09:55 Blood Type Confirm O POSITIVE 06/15/17 10:50 Antibody Screen Negative 06/15/17 09:55 Crossmatch See Detail 06/15/17 09:55 BBK History Checked No verified bt 06/15/17 09:55 - Hospital Course Hospital Course: Patient is a 46 year old female with history of gastric bypass surgery 4-5 years ago and oophorecetomy (unsure which side) presents to [facility] with abdominal pain that started on [place] that was associated with nausea and vomiting. Patient was admitted and treated for abdominal pain and symptomatic anemia. CT abd/pelvis showed mesenteric adenitis and non-obstructing kidney stone. GI and general surgery were consulted and on the case. Conservative management was recommended. Diet was slowly advanced, zofran prn nausea, and protonix. Hgb was found to be 7.4, anemia workup consistent with iron deficiency anemia. Patient was started on IV iron. Patient was ammendable to blood transfusion. Patient received two units of PRBCs, tolerated transfusion well. During her stay, abdominal pain resolved and patient was ambulating and tolerating diet. Patient denies any headaches, dizziness, cp, palpitations, sob, urinary symptoms, changes in bowel habits. Patient was medically stable for discharge. Patient advised to eat iron rich diet and adhere to bypass diet. To follow up with Dr Snyder within 1 week. 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 Prescription for Iron elixir was given. Discharge Exam - Head Exam Head Exam: ATRAUMATIC, NORMOCEPHALIC - Eye Exam Eye Exam: EOMI, Normal appearance Pupil Exam: NORMAL ACCOMODATION, PERRL - ENT Exam ENT Exam: Mucous Membranes Moist - Neck Exam Neck exam: Full Rom - Respiratory Exam Respiratory Exam: Clear to PA & Lateral, UNREMARKABLE. absent: Rales, Rhonchi, Wheezes - Cardiovascular Exam Cardiovascular Exam: REGULAR RHYTHM, +S1, +S2 - GI/Abdominal Exam GI & Abdominal Exam: Soft. absent: Distended, Firm, Guarding, Rigid, Tenderness - Extremities Exam Extremities exam: normal inspection - Back Exam Back exam: NORMAL INSPECTION - Neurological Exam Neurological exam: Alert, CN II-XII Intact, Normal Gait, Oriented x3 - Psychiatric Exam Psychiatric exam: Normal Affect, Normal Mood - Skin Skin Exam: Dry, Normal Color, Warm Discharge Plan - Discharge Medications Prescriptions: Ferrous Sulfate [Ferosul] 220 mg PO BID #28 elixir - Follow Up Plan Condition: FAIR Disposition: HOME/ ROUTINE Instructions: Iron Rich Diet (DC), Anemia (DC) Additional Instructions: Patient to follow up with PMD Dr Snyder within 1 week, advise iron rich diet , EGD as outpatient, f/u with gastric bypass surgeon as needed, Recommending follow up with SALES PROJECT COORDINATOR for menorrhagia. Referrals: Juno Snyder MD [Primary Care Provider] - <Gretchen Carias - Last Filed: 06/16/17 17:05> Provider - Provider Date of Admission: 06/14/17 20:53 Attending physician: Gretchen Carias MD Primary care physician: Juno Snyder MD Hospital Course - Lab Results Lab Results: Most Recent Lab Values WBC 6.9 10^3/ul (4.5-11.0) 06/16/17 07:01 RBC 4.66 10^6/uL (3.5-6.1) 06/16/17 07:01 Hgb 9.2 g/dL (12.0-16.0) L 06/16/17 07:01 Hct 30.9 % (36.0-48.0) L 06/16/17 07:01 MCV 66.3 fl (80.0-105.0) L 06/16/17 07:01 MCH 19.7 pg (25.0-35.0) L 06/16/17 07:01 MCHC 29.8 g/dl (31.0-37.0) L 06/16/17 07:01 RDW 20.0 % (11.5-14.5) H 06/16/17 07:01 Plt Count 207 10^3/uL (120.0-450.0) 06/16/17 07:01 Gran % 67.3 % (50.0-68.0) 06/16/17 07:01 Lymph % (Auto) 21.0 % (22.0-35.0) L 06/16/17 07:01 [place] % (Auto) 8.0 % (1.0-6.0) H 06/16/17 07:01 Eos % (Auto) 3.4 % (1.5-5.0) 06/16/17 07:01 Baso % (Auto) 0.3 % (0.0-3.0) 06/16/17 07:01 Gran # 4.62 (1.4-6.5) 06/16/17 07:01 Lymph # 1.4 (1.2-3.4) 06/16/17 07:01 [place] # 0.6 (0.1-0.6) 06/16/17 07:01 Eos # 0.2 (0.0-0.7) 06/16/17 07:01 Baso # 0.02 K/mm3 (0.0-2.0) 06/16/17 07:01 Retic Count 0.55 % (0.5-1.5) 06/15/17 06:30 PT 10.9 Seconds (9.9-11.8) 06/14/17 23:55 INR 1.01 (0.93-1.08) 06/14/17 23:55 APTT 24.3 Seconds (23.7-30.8) 06/14/17 23:55 Sodium 140 mmol/L (132-148) 06/16/17 07:01 Potassium 4.0 mmol/L (3.6-5.0) 06/16/17 07:01 Chloride 109 mmol/L (98-107) H 06/16/17 07:01 Carbon Dioxide 24 mmol/L (21-33) 06/16/17 07:01 Anion Gap 11 (10-20) 06/16/17 07:01 BUN 10 mg/dL (7-21) 06/16/17 07:01 Creatinine 0.7 mg/dL (0.5-1.4) 06/16/17 07:01 Est GFR ( Amer) > 60 06/16/17 07:01 Est GFR (Non-Af Amer) > 60 06/16/17 07:01 Random Glucose 97 mg/dL (70-110) 06/16/17 07:01 Calcium 8.9 mg/dL (8.4-10.5) 06/16/17 07:01 Phosphorus 3.2 mg/dL (2.5-4.5) 06/16/17 07:01 Magnesium 2.0 mg/dL (1.7-2.2) 06/16/17 07:01 Iron 18 ug/dL (45-180) L 06/14/17 17:00 TIBC 551 ug/dL (265-497) H 06/14/17 17:00 % Saturation 3 % (20-55) L 06/14/17 17:00 Ferritin 4.0 ng/mL 06/15/17 06:30 Total Bilirubin 0.7 mg/dL (0.2-1.3) 06/16/17 07:01 AST 20 U/L (14-36) 06/16/17 07:01 ALT 19 U/L (7-56) 06/16/17 07:01 Alkaline Phosphatase 61 U/L (38-126) 06/16/17 07:01 Total Protein 6.5 g/dL (5.8-8.3) 06/16/17 07:01 Albumin 3.7 g/dL (3.0-4.8) 06/16/17 07:01 Globulin 2.8 gm/dL 06/16/17 07:01 Albumin/Globulin Ratio 1.3 (1.1-1.8) 06/16/17 07:01 Lipase 78 U/L (23-300) 06/14/17 17:00 Vitamin B12 756 pg/mL (239-931) 06/16/17 08:39 Folate 14.8 ng/mL 06/16/17 08:39 Urine Color Yellow (YELLOW) 06/14/17 17:25 Urine Appearance Sl cloudy (CLEAR) 06/14/17 17:25 Urine pH 6.0 (4.7-8.0) 06/14/17 17:25 Ur Specific [place] >= 1.030 (1.005-1.035) 06/14/17 17:25 Urine Protein Negative mg/dL (<30 mg/dL) 06/14/17 17:25 Urine Glucose (UA) Negative mg/dL (NEGATIVE) 06/14/17 17:25 Urine Ketones Negative mg/dL (NEGATIVE) 06/14/17 17:25 Urine Blood Negative (NEGATIVE) 06/14/17 17:25 Urine Nitrate Negative (NEGATIVE) 06/14/17 17:25 Urine Bilirubin Negative (NEGATIVE) 06/14/17 17:25 Urine Urobilinogen 0.2 E.U./dL (<1 E.U./dL) 06/14/17 17:25 Ur Leukocyte Esterase Trace Lianne/uL (NEGATIVE) H 06/14/17 17:25 Urine RBC 0 - 2 /hpf (0-2) 06/14/17 17:25 Urine WBC 1 - 3 /hpf (0-6) 06/14/17 17:25 Ur Epithelial Cells 10 - 12 /hpf (0-5) 06/14/17 17:25 Blood Type O POSITIVE 06/15/17 09:55 Blood Type Confirm O POSITIVE 06/15/17 10:50 Antibody Screen Negative 06/15/17 09:55 Crossmatch See Detail 06/15/17 09:55 BBK History Checked No verified bt 06/15/17 09:55 Attending/Attestation - Attestation I have personally seen and examined this patient.: Yes I have fully participated in the care of the patient.: Yes I have reviewed all pertinent clinical information, including history, physical exam and plan: Yes Notes (Text): 06/16/17 17:01 attending note; Patient seen and examined with the resident. Patient is a 46 year old female with history of gastric bypass surgery 4-5 years ago and oophorecetomy (unsure which side) presents to [facility] with abdominal pain that started on Friday that was associated with nausea and vomiting. found to have symptomatic anemia. Status post 2 units PRBC transfusion. PO iron supplementation prescription given. advised to follow-up with PMD for the need for outpatient IV iron infusion when necessary. Patient will also follow-up with GI for EGD. Patient is advised to follow-up with surgery as needed. GI and surgery evaluation appreciated. CT scan showed nonspecific adenitis. Diagnosis; Abdominal pain Anemia status post blood transfusion Menorrhagia History of gastric bypass surgery
[2017-06-16 12:59] LABS: FOLATE 14.8 ng/mL
--- NOTE | 2017-06-16 14:11 | CP.PCM.PN ---
Subjective - Date & Time of Evaluation Date of Evaluation: 06/16/17 Time of Evaluation: 14:09 - Subjective Subjective: Patient seen and examined at bedside. Patient doing well with no new complaints at this time. Patient is no longer having the abdominal pain. Patient denies fever, chills, nausea, vomiting, diarrhea. Objective - Vital Signs/Intake and Output Vital Signs (last 24 hours): Temp Pulse Resp BP Pulse Ox 97.6 F 63 20 137/74 100 06/16/17 07:26 06/16/17 07:26 06/16/17 07:26 06/16/17 07:26 06/16/17 07:26 Intake and Output: 06/16/17 06/16/17 06:59 18:59 Intake Total 590 1040 Balance 590 1040 - Labs Labs: 06/16/17 07:01 06/16/17 07:01 PT 10.9 Seconds (9.9-11.8) 06/14/17 23:55 INR 1.01 (0.93-1.08) 06/14/17 23:55 APTT 24.3 Seconds (23.7-30.8) 06/14/17 23:55 - Constitutional Appears: Non-toxic, No Acute Distress - Head Exam Head Exam: NORMAL INSPECTION - Eye Exam Eye Exam: EOMI - ENT Exam ENT Exam: Mucous Membranes Moist - Respiratory Exam Respiratory Exam: NORMAL BREATHING PATTERN. absent: Accessory Muscle Use, Respiratory Distress - Cardiovascular Exam Cardiovascular Exam: REGULAR RHYTHM. absent: Bradycardia, Tachycardia - GI/Abdominal Exam GI & Abdominal Exam: Soft. absent: Distended, Tenderness - Extremities Exam Extremities Exam: Normal Inspection. absent: Pedal Edema, Tenderness - Neurological Exam Neurological Exam: Alert, Awake - Psychiatric Exam Psychiatric exam: Normal Affect, Normal Mood - Skin Skin Exam: Dry, Intact, Normal Color, Warm Assessment and Plan - Assessment and Plan (Free Text) Assessment: 46F with abdominal pain resolving CT: mesenteric adenitis, non-obstructing kidney stone Plan: No surgical intervention at this time Please reconsult as needed Further recs per Dr. Amauri Sofia PGY-1
== END 2017-06-16 14:02 | disposition home or self-care (01) ==
LOC: ED 16:40 → ERH 20:53 → 5RNO 22:07
PROVIDERS: ADMIT Internal Medicine; ATTEND Internal Medicine
DX: I88.0 Nonspecific mesenteric lymphadenitis (principal); N20.0 Calculus of kidney; D50.9 Iron deficiency anemia, unspecified; N92.0 Excessive and frequent menstruation with regular cycle; F10.10 Alcohol abuse, uncomplicated; E66.9 Obesity, unspecified; Z98.84 Bariatric surgery status; Z87.891 Personal history of nicotine dependence
CPT/HCPCS: 36415; 36430; 74176; 80053; 81001; 82607; 82728; 82746; 83540; 83550; 83690; 83735; 84100; 85025; 85027; 85044; 85610; 85730; 86850; 86900; 86920; 87086; 96365; 96375; 96376; 99285; C9113; G0378; J1756; J1885; J2270; J2405; J7040; P9016

== ENCOUNTER 2018-04-03 17:31 | Emergency (ER) | payer MEDICAID, OTHER ==
[2018-04-03 17:43] VITALS: BMI 35.2
[2018-04-03 19:42] VITALS: RESP 16; O2SAT 99
--- NOTE | 2018-04-03 20:08 | ED PDOC ---
Arrival/HPI - General Historian: Patient - History of Present Illness Time/Duration: Other (yesterday) Symptom Onset: Sudden Symptom Course: Unchanged Quality: Aching, Throbbing Severity Level: Moderate <Fallon Marie - Last Filed: 04/03/18 20:18> <HakeemPete anguiano - Last Filed: 04/03/18 20:47> - General Chief Complaint: Lower Extremity Problem/Injury Time Seen by Provider: 04/03/18 17:59 - History of Present Illness Narrative History of Present Illness (Text): 04/03/18 20:05 47-year-old female presents today with right leg pain status post fall yesterday. Patient states she slipped and fell down a boat ramp yesterday sustaining an injury to the right leg. Patient states she went to another emergency room where she had a CAT scan of the pelvis and an x-ray of the right femur and was told nothing was broken. Patient states he gave her morphine for pain there. Patient states he sent her home with Tylenol and she is still having pain. She denies numbness or tingling in the extremity. She is requesting anti-inflammatory medications for pain. Patient states the pain is located to the posterior aspect of the right thigh. Patient denies any pelvic pain. No abdominal pain. She denies neck or back pain. No other complaints ( Fallon Marie) Past Medical History - Provider Review Nursing Documentation Reviewed: Yes - Travel History Have you recently traveled outside [place] w/in the past 3 mons?: No - Infectious Disease Hx of Infectious Diseases: None - Tetanus Immunization Tetanus Immunization: Unknown - Past Medical History Past Medical History: Non-Contributing - Cardiac Hx Cardiac Disorders: No - Pulmonary Hx Respiratory Disorders: Yes (SMOKES 5 CIGARETTES A DAY) - Neurological Hx Neurological Disorder: No - HEENT Hx HEENT Disorder: No - Renal Hx Renal Disorder: No - Endocrine/Metabolic Hx Endocrine Disorders: No - Hematological/Oncological Hx Blood Disorders: Yes Hx Anemia: Yes (8.3 HGB 9-30-17) - Integumentary Hx Dermatological Disorder: No - Musculoskeletal/Rheumatological Hx Musculoskeletal Disorders: No Hx Falls: No - Gastrointestinal Hx Gastrointestinal Disorders: Yes (GASTRIC BYPASS [place]Y [place]) - Genitourinary/Gynecological Hx Genitourinary Disorders: Yes (FIBROIDS,L OVARY REMOVED,TUBAL LIGATION) - Psychiatric Hx Psychophysiologic Disorder: No Hx Depression: No Hx Emotional Abuse: No Hx Physical Abuse: No Hx Substance Use: No - Surgical History Hx Gastric Bypass Surgery: Yes (zuly n y) - Anesthesia Hx Anesthesia: Yes Hx Anesthesia Reactions: No Hx Malignant Hyperthermia: No - Suicidal Assessment Feels Threatened In Home Enviroment: No <Fallon Marie - Last Filed: 04/03/18 20:18> Family/Social History - Physician Review Nursing Documentation Reviewed: Yes Family/Social History: Unknown Family HX Smoking Status: Current Some Days Smoker Hx Alcohol Use: Yes (SOCIALLY DRINKS) Hx Substance Use: No Hx Substance Use Treatment: No <Fallon Marie - Last Filed: 04/03/18 20:18> Allergies/Home Meds <Fallon Mraie - Last Filed: 04/03/18 20:18> <Pete Palacio - Last Filed: 04/03/18 20:47> Allergies/Adverse Reactions: Allergies codeine Adverse Reaction (Verified 06/14/17 22:34) ANAPHYLAXIS Review of Systems - Review of Systems Constitutional: absent: Fatigue, Fevers Respiratory: absent: SOB, Cough Cardiovascular: absent: Chest Pain, Palpitations Gastrointestinal: absent: Abdominal Pain, Constipation, Diarrhea, Nausea, Vomiting Genitourinary Female: absent: Dysuria, Frequency Musculoskeletal: Arthralgias. absent: Back Pain, Neck Pain Skin: absent: Rash, Pruritis Neurological: absent: Headache, Dizziness Psychiatric: absent: Anxiety, Depression <Fallon Marie - Last Filed: 04/03/18 20:18> Physical Exam Vital Signs Reviewed: Yes Temperature: Afebrile Blood Pressure: Normal Pulse: Regular Respiratory Rate: Normal Appearance: Positive for: Well-Appearing, Non-Toxic, Comfortable Pain Distress: None Mental Status: Positive for: Alert and Oriented X 3 - Systems Exam Head: Present: Atraumatic Respiratory/Chest: Present: Clear to Auscultation Cardiovascular: Present: Regular Rate and Rhythm Abdomen: No: Tenderness, Distention, Rebound, Guarding Back: Present: Normal Inspection. No: CVA Tenderness, Midline Tenderness, Paraspinal Tenderness Upper Extremity: Present: Normal Inspection, Normal ROM Lower Extremity: Present: Normal Inspection, Normal ROM, Tenderness (right leg; + ttp over the posterior thigh; no ecchymosis; no edema, no erythema; full rom of hip and leg; pelvis stable. sensation and distal pulses intact; ), Neurovascularly Intact, Capillary Refill < 2 s. No: NORMAL PULSES, Swelling, Erythema, Deformity Neurological: Present: GCS=15, Speech Normal Skin: Present: Warm, Dry, Normal Color. No: Rashes Psychiatric: Present: Alert, Oriented x 3 <Fallon Marie Jose M - Last Filed: 04/03/18 20:18> Vital Signs Temp Pulse Resp BP Pulse Ox 04/03/18 19:41 98.4 F 63 16 115/66 99 Medical Decision Making Reassessment Condition: Re-examined, Improved <Adonis Mariefaiza Salguero - Last Filed: 04/03/18 20:18> <Pete Palacio - Last Filed: 04/03/18 20:47> ED Course and Treatment: 04/03/18 20:08 47-year-old female presents today with right leg pain status post fall yesterday. CAT scan of the femur:FINDINGS: Bones/joints: Ossific densities adjacent to the posterior aspect of the tibia and femur, probably related to old injury. Evaluation of the soft tissue is limited. No definite evidence of acute displaced fracture. No dislocation. Soft tissues: Soft tissue density in the left lower quadrant partially image probably related to ovary. it appears to be slightly enlarged. Consider ultrasound evaluation. IMPRESSION: 1. Ossific densities adjacent to the posterior aspect of the tibia and femur, probably related to old injury. Evaluation of the soft tissue is limited. No definite evidence of acute displaced fracture. 2. Soft tissue density in the left lower quadrant partially image probably related to ovary. it appears to be slightly enlarged. Consider ultrasound evaluation. Patient was given Toradol for pain in the emergency room. Flexeril added pt refused crutches, states she got the from the ER yesterday Patient reassessment: Patient feeling better after medications. Vital signs are stable. I discussed all results in depth with the patient. Advised follow-up with the orthopedist within the next 2 days. Advised Motrin and Flexeril for pain. Advised using crutches for ambulation. Advised me to return if symptoms worsen or persist or if new concerning symptoms develop Patient verbalizes understanding of discharge instructions and need for immediate followup. all aspects of this case were discussed the attending of record. Impression: Leg pain, contusion leg Motrin every 6 hours as needed for pain Flexeril one tablet every 8 hours as needed for muscle spasms: May cause drowsiness Followup with the orthopedist within the next 2 days Use crutches for ambulation rest, ice, compression, elevation Followup with primary care physician within the next 2 days Return if symptoms worsen persist or if new symptoms develop (Fallon Marie) - RAD Interpretation Radiology Orders: 04/03/18 17:59 EXT LOWER W/O CONTRAST RIGHT [CT] Stat - Medication Orders Current Medication Orders: Discontinued Medications Cyclobenzaprine HCl (Flexeril) 10 mg PO STAT STA Stop: 04/03/18 20:07 Ketorolac Tromethamine (Toradol) 60 mg IM STAT STA Stop: 04/03/18 18:02 Last Admin: 04/03/18 18:17 Dose: 60 mg MAR Pain Assessment Document 04/03/18 18:17 MS (Rec: 04/03/18 18:17 MS [id number]) Pain Reassessment Is this a pain reassessment? No Sleep Is patient sleeping during reassessment? No Presence of Pain Presence of Pain Yes Pain Scale Used Pain Scale Used Numeric Location Left, Right or Bilateral Right Pain Location Body Site Leg Description Description Constant Intensity of Pain at present 9 IM Administration Charges Document 04/03/18 18:17 MS (Rec: 04/03/18 18:17 MS [id number]) Injection Site MAR Injection Site Right Gluteus Georgi Charges for Administration # of IM Administrations 1 - [place] / LEADERSHIP DEVELOPMENT CONSULTANT / Resident Statement MD/DO has reviewed & agrees with the documentation as recorded. <Pete Palacio - Last Filed: 04/03/18 20:47> Disposition/Present on Arrival - Present on Arrival Any Indicators Present on Arrival: No History of DVT/PE: No History of Uncontrolled Diabetes: No Urinary Catheter: No History of Decub. Ulcer: No History Surgical Site Infection Following: None - Disposition Have Diagnosis and Disposition been Completed?: Yes Disposition Time: 20:11 Patient Plan: Discharge <Fallon Marie - Last Filed: 04/03/18 20:18> <Pete Palacio - Last Filed: 04/03/18 20:47> - Disposition Diagnosis: Leg pain Disposition: HOME/ ROUTINE Patient Problems: Current Active Problems Problem Status Onset Leg pain Acute Condition: GOOD Discharge Instructions (ExitCare): Muscle and Bone Pain (DC) Additional Instructions: Motrin every 6 hours as needed for pain Flexeril one tablet every 8 hours as needed for muscle spasms: May cause drowsiness Followup with the orthopedist within the next 2 days Use crutches for ambulation rest, ice, compression, elevation Followup with primary care physician within the next 2 days Return if symptoms worsen persist or if new symptoms develop Prescriptions: Cyclobenzaprine [Cyclobenzaprine HCl] 10 mg PO Q8 #10 tab Ibuprofen [Motrin] 600 mg PO Q6H PRN #20 tab PRN Reason: pain/fever reduction Referrals: Yin Barrett MD [Staff Provider] - Follow up with primary Jonatan Velasquez DO [Staff Provider] - Follow up with primary [facility] [Outside] - Follow up with primary Forms: [employer] (Singaporean), WORK NOTE
[2018-04-03 20:51] VITALS: BP 111/62; PULSE 72; TEMP 98.1
--- NOTE | 2018-04-04 12:28 | CT ---
PROCEDURE: CTA right lower extremity without contrast, femur INDICATION: TECHNIQUE: Multiple axial images were obtained with slice thickness of 2.5 mm. Coronal and sagittal reformatted images were obtained. Iterative reconstruction was used. Radiation dose: Total exam DLP = 1725.52 mGy-cm. This CT exam was performed using one or more of the following dose reduction techniques: Automated exposure control, adjustment of the mA and/or kV according to patient size, and/or use of iterative reconstruction technique. COMPARISON: None. FINDINGS: There is no acute displaced fracture or bone destruction. Bone alignment is normal. Bone mineralization is normal. There is a small round well corticated ossific density posterior to the lateral femoral condyles which may represent a loose body or related to old injury. There is mild tricompartmental degenerative osteoarthrosis with mild reduced joint spaces, marginal spurring and tibial spiking. There is no large periarticular hematoma. There is ill-defined hypodensity in the posterior compartment muscles with diffuse subcutaneous edema in the deep posterior soft tissues. Incompletely imaged low density mass in the left lower quadrant. IMPRESSION: No acute displaced fracture or dislocation. Diffuse subcutaneous edema in the posterior soft tissues. Diffuse low density in the posterior compartment muscles could be related to contusion or edema. Follow-up is advised. Incompletely imaged and characterized low-density mass in the left lower quadrant. A preliminary report was provided by [employer] services.
== END 2018-04-03 20:49 | disposition home or self-care (01) ==
LOC: ED 17:31
DX: M79.604 Pain in right leg (principal); F17.210 Nicotine dependence, cigarettes, uncomplicated
CPT/HCPCS: 73700; 96372; 99283; J1885

== ENCOUNTER 2018-08-21 22:56 | Emergency (ER) | payer MEDICAID, OTHER ==
[2018-08-21 22:56] VITALS: BMI 35.2
[2018-08-21] MEDS ORDERED: TDAP Vaccine 0.5 mL Syr IM ONE (23:17)
[2018-08-21 23:43] VITALS: RESP 18; O2SAT 99
--- NOTE | 2018-08-22 00:02 | ED PDOC ---
Arrival/HPI - General Chief Complaint: Trauma Time Seen by Provider: 08/21/18 23:10 Historian: Patient - History of Present Illness Narrative History of Present Illness (Text): 08/21/18 23:10 47 year old female, whose past medical history includes anemia, gastric bypass and tubal ligation presents to the emergency department accompanied by daughter for evaluation of facial injury s/p fall 30 minutes prior to arrival. As per cheri beth, patient was at a birthday green party tonight and was drinking. Patient was wearing heels walking to open her front door when she fell and hit her head on the door knob sustaining a right-side facial abrasion and laceration above the right eye. Daughter heard a loud noise and saw patient outside on the ground. Unknown last tetanus. The patient denies any fever, chills, vision changes, chest pain, shortness of breath, abdominal pain, nausea, vomiting, diarrhea, urinary symptoms, back pain, neck pain, LOC, headache, dizziness, or any other complaints. PMD: Dr. Amauri Gil Time/Duration: Prior to Arrival, 1/2 hour Symptom Onset: Sudden Activities at Onset: Light Context: Walking Past Medical History - Provider Review Nursing Documentation Reviewed: Yes - Infectious Disease Hx of Infectious Diseases: None - Tetanus Immunization Tetanus Immunization: Unknown - Past Medical History Past Medical History: Non-Contributing - Cardiac Hx Cardiac Disorders: No - Pulmonary Hx Respiratory Disorders: Yes (SMOKES 5 CIGARETTES A DAY) - Neurological Hx Neurological Disorder: No - HEENT Hx HEENT Disorder: No - Renal Hx Renal Disorder: No - Endocrine/Metabolic Hx Endocrine Disorders: No - Hematological/Oncological Hx Blood Disorders: Yes Hx Anemia: Yes (8.3 HGB 9-30-17) - Integumentary Hx Dermatological Disorder: No - Musculoskeletal/Rheumatological Hx Musculoskeletal Disorders: No Hx Falls: No - Gastrointestinal Hx Gastrointestinal Disorders: Yes (GASTRIC BYPASS [place]ULY [place]) - Genitourinary/Gynecological Hx Genitourinary Disorders: Yes (FIBROIDS,L OVARY REMOVED,TUBAL LIGATION) - Psychiatric Hx Psychophysiologic Disorder: No Hx Depression: No Hx Emotional Abuse: No Hx Physical Abuse: No Hx Substance Use: No - Surgical History Hx Gastric Bypass Surgery: Yes (zuly n y) - Anesthesia Hx Anesthesia: Yes Hx Anesthesia Reactions: No Hx Malignant Hyperthermia: No - Suicidal Assessment Feels Threatened In Home Enviroment: No Family/Social History - Physician Review Nursing Documentation Reviewed: Yes Family/Social History: No Known Family HX Smoking Status: Current Some Days Smoker Hx Alcohol Use: Yes (SOCIALLY DRINKS) Hx Substance Use: No Hx Substance Use Treatment: No Allergies/Home Meds Allergies/Adverse Reactions: Allergies codeine Adverse Reaction (Verified 06/14/17 22:34) ANAPHYLAXIS Review of Systems - Physician Review All systems were reviewed & negative as marked: Yes - Review of Systems Constitutional: Normal. absent: Fevers, Other (Chills) Eyes: Normal. absent: Vision Changes, Photophobia, Eye Pain ENT: Normal Respiratory: Normal. absent: SOB Cardiovascular: Normal. absent: Chest Pain Gastrointestinal: Normal. absent: Abdominal Pain, Diarrhea, Vomiting Genitourinary Female: Normal. absent: Dysuria, Frequency, Hematuria Musculoskeletal: Normal. absent: Back Pain, Neck Pain Skin: Normal, Laceration (above right eye), Other (abrasion to right-side of f yamila) Neurological: Normal. absent: Headache, Dizziness, Other (LOC) Physical Exam Vital Signs Reviewed: Yes Vital Signs Temp Pulse Resp BP Pulse Ox 08/21/18 23:43 97.4 F L 98 H 18 142/75 99 Temperature: Afebrile Blood Pressure: Normal Pulse: Regular Respiratory Rate: Normal Appearance: Positive for: Well-Appearing, Non-Toxic, Comfortable Pain Distress: None Mental Status: Positive for: Alert and Oriented X 3 (Intoxicated) - Systems Exam Head: Present: Normocephalic, Swelling (periorbital right eye), Abrasion (superfical abrasion to the right cheek), Laceration (2cm linear laceration over the tarsal plate above the right eye; No eye involvement.). No: Tenderness, Contusion, Ecchymosis Pupils: Present: PERRL, Other (Visual acuity intact bilaterally) Extroacular Muscles: Present: EOMI Conjunctiva: Present: Normal Ears: Present: Normal, NORMAL TM. No: Other (hemotypanum) Mouth: Present: Moist Mucous Membranes Pharnyx: Present: Normal. No: ERYTHEMA, EXUDATE Nose (External): Present: Atraumatic Nose (Internal): Present: Normal Inspection. No: No Active Bleeding, Septal Deviation, Septal Hematoma Neck: Present: Normal Range of Motion. No: MIDLINE TENDERNESS Respiratory/Chest: Present: Clear to Auscultation, Good Air Exchange. No: Respiratory Distress, Accessory Muscle Use Cardiovascular: Present: Regular Rate and Rhythm, Normal S1, S2. No: Murmurs Abdomen: Present: Normal Bowel Sounds. No: Tenderness, Distention, Peritoneal Signs Back: Present: Normal Inspection. No: Midline Tenderness Upper Extremity: Present: Normal Inspection, Normal ROM, NORMAL PULSES, Neurovascularly Intact, Capillary Refill < 2s, Other (5/5 strength bilaterally). No: Cyanosis, Edema Lower Extremity: Present: Normal Inspection, NORMAL PULSES, Normal ROM, Neurovascularly Intact, Capillary Refill < 2 s, Other (5/5 strength bilaterally). No: Edema, Tenderness, Swelling Neurological: Present: GCS=15, CN II-XII Intact, Speech Normal, Motor Func Grossly Intact, Normal Sensory Function, Memory Normal Skin: Present: Warm, Dry, Normal Color. No: Rashes Psychiatric: Present: Alert, Oriented x 3, Normal Insight, Intoxicated (Easily arousible; speaking in full sentences) Medical Decision Making ED Course and Treatment: 08/21/18 23:10 Impression: 47 year old female presents for complaints of 2cm laceration above the right eye and a superficial abrasion to the right face s/p fall 30 minutes [place]. Plan: -- Labs -- CT head, neck, maxillofacial -- TDaP -- Keflex -- Reassess and disposition Wounds cleaned and irrigated by medical delivery technician Steven CT scans significant for right preseptal orbital emphysema, consistent with laceration. No other acute pathology. Wound dressed by medical delivery technician Steven Progress Notes: Dr. Waters evaluated patient at bedside, recommends call to Dr. Hebert, ophthalmology. Lab results discussed with Dr. Waters, who states patient can be discharged into the care of family members after CT scans are confirmed to be negative for acute pathology. 00:17 Case discussed with Hand Leather Trimmer Dr. Bruce Li who recommends patient to be discharged home and for patient to followup with him to have laceration sutured in the morning at his office. Discharged patient into the care of daughter and son in-law. Educated family on the importance of close observation at home, who verbalized understanding. Plan of care discussed with patient and family, and strict instructions given re garding importance of follow up, and signs to return to Emergency Department, to include vomiting, lethargy, weakness, numbness, worsening pain, vision changes, or any other new/worsening symptoms. Patient verbalizes understanding of discussion. Patient A&Ox3, ambulating with steady gait, stable for discharge home. - Lab Interpretations Lab Results: 08/21/18 23:55 08/21/18 23:55 Lab Results 08/21/18 23:55: Salicylates < 1 L, Acetaminophen < 10.0 L 08/21/18 23:55: Alcohol, Quantitative 256 H 08/21/18 23:55: PT 10.9, INR 0.95, APTT 27.8 08/21/18 23:55: Sodium 140, Potassium 3.9, Chloride 110 H, Carbon Dioxide 19 L, Anion Gap 15, BUN 11, Creatinine 0.7, Est GFR ( Amer) > 60, Est GFR (Non- Af Amer) > 60, Random Glucose 118 H, Calcium 8.4, Total Bilirubin 0.1 L, AST 26, ALT 34, Alkaline Phosphatase 89, Total Protein 7.6, Albumin 4.2, Globulin 3.4, Albumin/Globulin Ratio 1.2 08/21/18 23:55: WBC 11.0, RBC 4.71, Hgb 9.9 L, Hct 33.1 L, MCV 70.3 L D, MCH 21.0 L, MCHC 29.9 L, RDW 18.8 H, Plt Count 299, MPV 9.8, Gran % 71.6 H, Lymph % (Auto) 20.9 L, [place] % (Auto) 4.0, Eos % (Auto) 3.0, Baso % (Auto) 0.5, Gran # 7.89 H, Lymph # (Auto) 2.3, [place] # (Auto) 0.4, Eos # (Auto) 0.3, Baso # (Auto) 0.06 I have reviewed the lab results: Yes - RAD Interpretation Radiology Orders: 08/21/18 23:17 CERVICAL SPINE W/O CONTRAST [CT] Stat HEAD W/O CONTRAST [CT] Stat MAXILLOFACIAL W/O CONTRAST [CT] Stat Welder/Fitter: Radiologist - Medication Orders Current Medication Orders: Discontinued Medications Tetanus/Reduced Diphtheria/Acell Pertussis (Boostrix Vaccine Inj) 0.5 ml IM .ONCE ONE Stop: 08/21/18 23:18 - Scribe Statement The provider has reviewed the documentation as recorded by the Scribe Alaa Aubrie Provider Yeimi Attestation: All medical record entries made by the Yeimi were at my direction and personally dictated by me. I have reviewed the chart and agree that the record accurately reflects my personal performance of the history, physical exam, medical decision making, and the department course for this patient. I have also personally directed, reviewed, and agree with the discharge instructions and disposition. Disposition/Present on Arrival - Present on Arrival Any Indicators Present on Arrival: No History of DVT/PE: No History of Uncontrolled Diabetes: No Urinary Catheter: No History of Decub. Ulcer: No History Surgical Site Infection Following: None - Disposition Have Diagnosis and Disposition been Completed?: Yes Diagnosis: Alcohol intoxication, Laceration Disposition: HOME/ ROUTINE Disposition Time: 02:15 Patient Plan: Discharge Condition: IMPROVED Discharge Instructions (ExitCare): Wound Care (DC), Alcohol Abuse and Alcoholism (DC) Additional Instructions: Take antibiotics every 6 hours for 7 days Keep wounds clean, dry, and covered Ice for swelling Tylenol/Ibuprofen for pain Increase fluids to stay hydrated Followup with Dr. Hebert first thing in the morning Return to ER for any new/worsening symptoms Prescriptions: Cephalexin [Keflex] 500 mg PO QID 7 Days #28 capsule Referrals: Hammad Li MD [Staff Provider] - Follow up with primary Forms: [employer] (Japanese), WORK NOTE
[2018-08-22 00:22] LABS: ACETAMINOPHEN < 10.0 ug/ml (10.0-20.0); SALICYLATE < 1 mg/dL (2.0-20.0)
[2018-08-22 00:23] LABS: ALB/GLOB RATIO 1.2 (1.1-1.8); ALBUMIN 4.2 g/dL (3.0-4.8); ALT/SGPT 34 U/L (7-56); AST/SGOT 26 U/L (14-36); BLOOD UREA NITROGEN 11 mg/dL (7-21); CALCIUM 8.4 mg/dL (8.4-10.5); GFR NON-AFRICAN AMERICAN > 60
[2018-08-22 00:24] LABS: BASO # 0.06 K/mm3 (0.0-2.0); BASO % 0.5 % (0.0-3.0); EOS # 0.3 (0.0-0.7); GRAN # 7.89 (1.4-6.5); GRAN % 71.6 % (50.0-68.0); HEMOGLOBIN 9.9 g/dL (12.0-16.0); LYMPH # 2.3 (1.2-3.4); LYMPH % 20.9 % (22.0-35.0); MEAN CELL VOLUME 70.3 fl (80.0-105.0); MEAN CORPUSCULAR HGB CONC 29.9 g/dl (31.0-37.0); MEAN PLATELET VOLUME 9.8 fl (7.0-11.0); MONO # 0.4 (0.1-0.6); RBC 4.71 10^6/uL (3.5-6.1); RED CELL DISTRIBUTION WIDTH 18.8 % (11.5-14.5)
[2018-08-22 00:29] LABS: INR 0.95; PARTIAL THROMBOPLASTIN TIME 27.8 Seconds (25.1-36.5); PROTHROMBIN TIME 10.9 SECONDS (9.4-12.5)
[2018-08-22 01:08] VITALS: BP 112/64; PULSE 89
[2018-08-22 02:48] VITALS: TEMP 97.6
--- NOTE | 2018-08-22 10:00 | CT ---
Date of service: 08/22/2018 PROCEDURE: CT HEAD WITHOUT CONTRAST. HISTORY: head trauma, ETOH COMPARISON: None available. TECHNIQUE: Axial computed tomography images were obtained through the head/brain without intravenous contrast. Radiation dose: Total exam DLP = 940.57 mGy-cm. This CT exam was performed using one or more of the following dose reduction techniques: Automated exposure control, adjustment of the mA and/or kV according to patient size, and/or use of iterative reconstruction technique. FINDINGS: HEMORRHAGE: No intracranial hemorrhage. BRAIN: No mass effect or edema. No atrophy or chronic microvascular ischemic changes. VENTRICLES: Unremarkable. No hydrocephalus. CALVARIUM: Unremarkable. PARANASAL SINUSES: Unremarkable as visualized. No significant inflammatory changes. MASTOID AIR CELLS: Unremarkable as visualized. No inflammatory changes. OTHER FINDINGS: The report concurs with the preliminary [facility] report IMPRESSION: No acute intracranial findings. Right preseptal soft tissue orbital emphysema
--- NOTE | 2018-08-22 10:02 | CT ---
Date of service: 08/22/2018 PROCEDURE: CT MAXILLOFACIAL BONES WITHOUT CONTRAST HISTORY: head trauma, ETOH COMPARISON: None available. TECHNIQUE: Contiguous axial CT images of the maxillofacial bones were obtained. Coronal and sagittal reformats were generated. Radiation dose: Total exam DLP = 735.66 mGy-cm. This CT exam was performed using one or more of the following dose reduction techniques: Automated exposure control, adjustment of the mA and/or kV according to patient size, and/or use of iterative reconstruction technique. FINDINGS: NASAL BONES: Unremarkable. ORBITS: There is right-sided preseptal orbital emphysema. There is no associated fracture PARANASAL SINUSES/ MASTOIDS: Clear. MAXILLA: Unremarkable. MANDIBLE/ TEMPOROMANDIBULAR JOINTS: Unremarkable. SKULL BASE: Unremarkable. TEMPORAL BONES: Middle ears and mastoid grossly unremarkable. OTHER FINDINGS: The report concurs with the preliminary [facility] report IMPRESSION: There is right-sided preseptal orbital emphysema. There is no associated fracture
--- NOTE | 2018-08-22 10:04 | CT ---
Date of service: 08/22/2018 PROCEDURE: CT Cervical Spine without contrast HISTORY: head trauma, ETOH COMPARISON: None available. TECHNIQUE: Axial computed tomography images were obtained of the cervical spine without the use of intravenous contrast. Coronal and sagittal reformatted images were created and reviewed. Radiation dose: Total exam DLP = 538.6 mGy-cm. This CT exam was performed using one or more of the following dose reduction techniques: Automated exposure control, adjustment of the mA and/or kV according to patient size, and/or use of iterative reconstruction technique. FINDINGS: VERTEBRAE: No fracture. Normal alignment. No destructive bony lesion. DISCS/SPINAL CANAL/NEURAL FORAMINA: No significant central canal or neural foraminal stenosis. Discs heights are grossly preserved. PARASPINAL SOFT TISSUES: Unremarkable. OTHER FINDINGS: The report concurs with the preliminary [facility] report IMPRESSION: No acute findings. No evidence of fracture
== END 2018-08-22 02:37 | disposition home or self-care (01) ==
LOC: ED 22:56
DX: S01.111A Laceration without foreign body of right eyelid and periocular area, initial encounter (principal); W01.198A Fall on same level from slipping, tripping and stumbling with subsequent striking against other object, initial encounter; Y92.008 Other place in unspecified non-institutional (private) residence as the place of occurrence of the external cause; F10.129 Alcohol abuse with intoxication, unspecified; Y90.8 Blood alcohol level of 240 mg/100 ml or more; Z23 Encounter for immunization